=== PATIENT | female | born 2000 | race Caucasian/White ===

== ENCOUNTER 2019-11-16 10:17 | Emergency (ER) | payer OTHER, SELFPAY ==
[2019-11-16 10:46] VITALS: BP 123/70; PULSE 82; RESP 16; TEMP 36.7; O2SAT 100
--- NOTE | 2019-11-16 11:06 | ED.GENADULT ---
HPI - General Adult General Chief complaint: Eye Problems Stated complaint: Eye Problems Time Seen by Provider: 11/16/19 11:06 Source: patient Mode of arrival: ambulatory Limitations: no limitations History of Present Illness HPI narrative: 19-year-old female patient presents to the [facility] with complaints of left eye pain that started yesterday. Patient states that she slept in her contacts the other night. Patient states that she did take out her contact yesterday but continues to have worsening pain. Patient states that her eye is very teary and draining. Patient states that she has a lot of photophobia of the eye. Patient states that she has a lot of pain to the back of the eye and states it almost feels like it is bruised. Denies any trauma that she is aware of. Patient states that she did try calling her head of loss prevention this morning but they state that they were unable to get her in this morning. Related Data Home Medications Medication Instructions Recorded Confirmed buspirone 10 mg PO BID 11/16/19 11/16/19 Allergies Allergy/AdvReac Type Severity Reaction Status Date / Time No Known Allergies Allergy Unverified 11/16/19 10:55 Review of Systems Review of Systems: Narrative: CONSTITUTIONAL: Denies fever, chills, or sweats. EYES: Positive visual changes, positive left eye redness, and clear discharge. ENT: Denies rhinorrhea, congestion, sore throat, or otalgia. CARDIOVASCULAR: Denies chest pain, palpitations, or edema. RESPIRATORY: Denies cough or dyspnea. GASTROINTESTINAL: Denies abdominal pain, nausea, vomiting, or diarrhea. GENITOURINARY: Denies dysuria or hematuria. SKIN: Denies rash or itching. MUSCULOSKELETAL: Denies back pain, joint pain, or myalgia. NEUROLOGIC: Denies headache, numbness, or weakness. PSYCHIATRIC: Denies anxiety or depression. PMFSH Comments At the time of my signature I agree with nursing past medical history, surgical, social, and family history. There is no relevant family history pertinent to the presenting complaint. Exam Narrative: Exam Narrative: GENERAL: Well-appearing, well-nourished, and in no acute distress. HEAD: Normocephalic, atraumatic. EYES: PERRLA, EOM intact with complaint of pain, no periorbital soft tissue swelling ,no erythema, warmth or tenderness noted, no obvious deformity. No crusting or swelling.clear tearing and draining noted to the left eye.positive photophobia. No nystagmus No FB or lesion on lid eversion. Corneas grossly clear, no obvious FB or hyphens/hypopyon. injection to sclera of left eye. Lids and lashes clear. ENT: Nares clear, no rhinorrhea or epistaxis. Mucous membranes moist. NECK: Supple. No lymphadenopathy CHEST: Clear to auscultation. No respiratory distress. HEART: Regular rate and rhythm. No murmur heard. Normal peripheral pulses. ABDOMEN: Soft, nontender, nondistended, normal active bowel sounds. EXTREMITIES: Normal range of motion. No edema. SKIN: Warm, dry, no rash. NEURO: No focal deficits. Alert and oriented x3. Course Reevaluation(s) Reevaluation #1: Attempted to call [facility] [place] where she is where patient does see her head of loss prevention. Spoke with the [facility] there and states that the patient called earlier in based on her complaints the head of loss prevention is not able to do a slit lamp evaluation and is actually recommending that she see an licensed pharmacist and have a slit lamp exam done due to her complaints and recommending that she goes to [facility] for this. Discussed this option with the patient and discussed with her that if she does have some type of damage done to the muscle behind her eye that this would require her to see a specialist and the only one that is available on a Monday would be a [facility] where she would also be able to get a slit lamp exam. Patient is aware of the plan of care and is agreement with this plan states that she will have her grandmother drive her to [facility]
[2019-11-16] MEDS: TETRACAINE HCL 0.5% OPHTH SOLN 4 ML BTL 2 DROP LEFT EYE (11:15)
== END 2019-11-16 11:48 | disposition short-term general hospital (02) ==
PROVIDERS: Emergency Provider Nurse Practitioner Family; PCP Family Medicine Adolescent Medicine
DX: H57.12 Ocular pain, left eye (principal); F41.9 Anxiety disorder, unspecified
CPT/HCPCS: 99213; A9270; G0463

== ENCOUNTER 2025-02-04 19:17 | Emergency (ER) | payer OTHER, SELFPAY ==
--- NOTE | ~2025-02-04 | CT_ITS ---
History: Ground-level fall. PROCEDURE: CT cervical spine and facial bones without intravenous contrast. COMPARISON: None TECHNIQUE: Multiple contiguous axial images of the cervical spine and facial bones were performed without the ad ministration of intravenous contrast. DLP: 227 mGy-cm FINDINGS: Straightening and slight reversal of the normal curvature of the cervical spine is identified, likely muscular in origin. No acute fractures are present within the cervical spine or facial bones.. 8 mm solid nodule within the right upper lobe (axial series, image 165) The remainder of the bilateral lung apices are otherwise unremarkable. No soft tissue abnormality is present. The airway is patent. Impression: Straightening and slight reversal of the normal curvature of the cervical spine, likely muscular in o rigin. No acute fracture within the cervical spine or facial bones. 8 mm solid nodule within the right upper lobe. Fleischner's guidelines are not recommended until the patient is greater than 35 years of age. Consul tation with a second officer is recommended for further evaluation.. Reviewed, dictated and finalized at location A. Impression: Straightening and slight reversal of the normal curvature of the cervical spine , likely muscular in origin. No acute fracture within the cervical spine or facial bones. 8 mm solid nodule within the right upper lobe. Fleischner's guidelines are not recommended until the patient is greater than 3 5 years of age. Consultation with a second officer is recommended for further ev aluation..
--- NOTE | ~2025-02-04 | XR_ITS ---
HISTORY: fall COMPARISON: None TECHNIQUE: 3 views of the right foot were performed FINDINGS: No acute fracture or dislocation is appreciated. No significant degenerative disease is noted. The base of the fifth metatarsal is intact. No calcaneal spur is noted. No significant soft tissue swelling is present. IMPRESSION: Unremarkable radiographic evaluation of the right foot, as detailed above. Reviewed, dictated and finalized at location A. IMPRESSION: Unremarkable radiographic evaluation of the right foot, as detaile d above.
--- NOTE | ~2025-02-04 | CT_ITS ---
History: Fall PROCEDURE: CT head without contrast. COMPARISON: None TECHNIQUE: Axial imaging of the head performed from the skull base to the vertex without IV contrast. Sagittal a nd coronal reformations obtained. DLP: 681 mGy-cm FINDINGS: The ventricles are normal in size, shape and position. There is no mass, mass effect or midline shift. There is no abnormal extra-axial fluid collection or intracranial hemorrhage. Visualized paranasal sinuses are clear. The mastoid air cells are well aerated. No acute displaced fractures within the overlying cranium. Impression: No acute intracranial hemorrhage or suspicious mass effect. Reviewed, dictated and finalized at location A. Impression: No acute intracranial hemorrhage or suspicious mass effect.
--- OUTSIDE RECORDS SUMMARY | 2025-02-04 19:20 | XMS_ITS | Patient Health Record ---
Author Organization [facility] Address [address] [place] [address] Care Team Providers Care Fixture Maker Name Role Phone Chuycasetito Jodi Primary Care Provider Reason For Referral No Information Medications Medication SIG (Take, Route, Fr equency, Duration) Notes Start Date End Date Status LaMICtal 25 MG 2 tablets Orally onc e daily for 14 days Active Zofran 4 MG 1 tablet Orally as needed Active ibuprofen 200mg 2-4 tablets orally as needed Active cloNIDine HCl 0.1 MG 1 tablet Orally twi ce a day as needed for anxiety/agitation for 30 day(s) 02/14/2018 Active busPIRone HCl 10 MG 1 tablet Orally Twic e a day for 14 days Active traZODone HCl 50 MG 1 tablet at bedtime as needed Orally Once a day for 14 days Ac tive Social History Tobacco Use: Social History Observation Description Date Details (start date - stop date) Current Smoker NA - NA Dont use, Tobacco Use/Smoking Question Answer Notes Are you a current smoker How often do you smoke cigarettes? every day How many cigarettes a day do you smoke? 11-20 How soon after you wake up d o you smoke your first cigarette? within 5 minutes Are you interested in quitting? Not ready to josephine t Additional Findings: Tobacco User Modera te cigarette smoker (10-19 cigs/day) Alcohol Screen (Audit-C) Question Answer Notes Did you have a drink contain ing alcohol in the past year? Yes How often did you have a dri nk containing alcohol in the past year? 4 or more times a week (4 points) How many drinks did you have on a typical day when you were drinking in the past year? 3 or 4 drinks (1 point) How often did you have 6 or more drinks on one occasion in the past year? Never (0 point) Points 5 Interpretation Positive Section Notes: Client went to rehab for 10 days, for K2, when she was 14 years old. She used it for 2 months. Legal History-pending felony for a crack pipe, report she took the charge for her boyfriend. She is not on probation. Client went to rehab for 10 days, for K2, when she was 14 years old. She used it for 2 months. Legal History-pending felony for a crack pipe, report she took the charge for her boyfriend. She is not on probation. Problems Problem Type SNOMED Code ICD Code Onset Dates Problem Status W/U Status Risk Notes Problem 43552507 Tobacco dependence (F17.200) Active confirmed Problem Mood disorder (33084115) Mood disorder (F39) Active confirmed Problem CHITO (generalized anxiety disorder) (F41.1) Active confirmed Plan Of Treatment No Information Insurance Providers Payer Name Payer Address Payer Phone Subscriber Number Group Number Insured Name Patient Relationship to Insured Coverage Start Date Coverage End Date [facility] Attn Claims Department [address] [place] [phone] [id number] Linette Nino Self - patient is the insured 8 Medical (General) History Medical History History ICD Code 2016 Broken back depression Hospitalization History Reason Date(Month/Year) depression 01/2018 fracture t spine after fall 2015
--- OUTSIDE RECORDS SUMMARY | 2025-02-04 19:20 | XMS_ITS | Clinical Summary ---
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 Gender Identity Not on file Sexual Orientation Not on file Plan of Treatment Health Maintenance Due Date Last Done Comments Hepatitis C Virus (HCV) Screening 1998 TdaP Immunization 1998 Human Papillomavirus (HPV) Immunization (1 - 3-dose series) 2013 Hepatitis B Immunization (1 of 3 - 19+ 3-dose series) 2017 Pap Smear 2019 Influenza Immunization (#1) 2024 SARS-COV-2 Immunization ( season) 2024 Respiratory Syncytial Virus (RSV) Immunization (Adult) (1 - 1-dose 75+ series) 2073 Meningococcal Immunization (ACWY) Aged Out No longer eligible based on patient's age to complete this topic Pneumococcal Immunization Combined Aged Out No longer eligible based on patient's age to complete this topic Rotavirus Immunization Aged Out No lo nger eligible based on patient's age to complete this topic
--- OUTSIDE RECORDS SUMMARY | 2025-02-04 19:20 | XMS_ITS | Clinical Summary ---
Author Organization [facility] Address [address] [place] [id number] Care Team Providers Care Child Nutrition Manager Name Role Phone Juan Daniel Roberts MD Primary Care Provider [phone] Allergies No known active allergies Medications propranolol 20 MG tablet Take 1 tablet (20 mg total) by mouth 3 (three) times daily as needed (Anxiety and/or palpitation s). 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 Gender Identity Not on file Sexual Orientation Not on file Last Filed Vital Signs Vital Sign Reading Time Taken Comments Blood Pressure 132/95 05/02/2024 6:54 PM CDT Pulse 70 05/02/2024 6:54 PM CDT Temperature 36.8 C (98.2 F) 05/02/2024 4:18 PM CDT Respiratory Rate 18 05/02/2024 6:54 PM CDT Oxygen Saturation 100% 05/02/2024 6:54 PM CDT Inhaled Oxygen Concentration - - Weight 56.7 kg (125 lb) 05/02/2024 4:18 PM CDT Height 162.6 cm (5' 4 ) 05/02/2024 4:18 PM CDT Body Mass Index 21.46 05/02/2024 4:18 PM CDT Plan of Treatment Health Maintenance Due Date Last Done Comments Annual Physical 2001 HPV Vaccines (1 - 3-dose series) 2013 Hepatitis C 2016 DTaP, Tdap and Td Vaccines ( 1 - Tdap) 2017 Hepatitis B Vaccines (1 of 3 - 19+ 3-dose series) 2017 Pneumococcal Vaccine: Pediat rics (0 to 5 Years) and At-Risk Patients (6 to 49 Years) (1 of 2 - PCV) 2017 COVID-19 Vaccine ( - 2023-2 5 season) 2024 Cervical Cancer Screening Pa p Smear (Age 21 to 29) Every 3 Years 08/15/2025 08/15/2022 Cervical Cancer Screening 08/15/2025 Meningococcal B Vaccine Aged Out No l onger eligible based on patient's age to complete this topic Meningococcal Vaccine Aged Out No david nandini eligible based on patient's age to complete this topic RSV Immunizations Under 20 Months Aged Out No longer eligible based on patient's age to complete this topic [place] [address] MEDICAID [facility] Care Teams Child Nutrition Manager Relationship Specialty Start Date End Date Juan Daniel Roberts MD [address] [id number] PCP - General FAMILY PRACTICE 11/27/21
--- OUTSIDE RECORDS SUMMARY | 2025-02-04 19:20 | XMS_ITS | Data Portability ---
Author Organization [facility] [place] Address [address] [place] [address] [place] [address] Assessment No assessment recorded. Plan of Treatment Reminders Order Date Submit Date Provider Last Modified By Organization Details Last Modified Time Details Appointments None recorded. Lab test, urine 2019 020 [email or web address] [place], [address], [place], [address], 0 13:59:56 Referral None recorded. Procedures None recorded. Surgeries None recorded. Imaging US, pelvis, complete 2019 020 [facility], [address], [address], [place], [address], 1 05:01:22 Medication Orders Valtrex 1 gram tablet 2021 022 [id number], [address] [facility], [place], [place], [id number], 2 15:10:03 Patient TargetsNo targets recorded. Patient Instructions Encounter Date Encounter Id Patient Instructions Last Modified By Organization Details Last Modified Time 06/03/2020 [id number] [email or web address] Not available 12:42:55 Reason for Referral None Reported. Results Created Date Observation Date Name Description Value Unit Range Abnormal Flag Note LastModifiedBy Organization Detail LastModifiedTime 03/13/20 20 03/15/2020 CT + NG DNA, PCR, unspe cifie d speci men trichomonas vaginalis, aptima (panther) NOT DETECT ED normal DNA testi ng perfo rmed by [employer]i ficat ion (TMA) These resul ts shoul d be inter prete d in light of all clini messi and labor atory findi ngs. This assay is highl y accur ate, but rare false posit natalie and negat natalie resul ts may occur . Posit natalie resul ts in low preva lence popul ation s may requi re re-ev aluat ion. A negat natalie resul t does not precl ude a possi ble infec tion due to a speci men inade quacy or sampl ing error . Test perfo rmed by [employer], d/b/a Path jean, [address], [place] [address] , Parviz Pizarro ra, , Labor atory Dire tor. Not Available [facility] ([facility]) [address], [place], [address], 03/16/2020 07:20:40 03/13/20 20 03/15/2020 CT + NG DNA, PCR, unspe cifie d speci men neisseria gonorrhoeae, aptima NOT DETECT ED normal DNA testi ng perfo rmed by [employer] f[employer] ion (TMA) These resul ts shoul d be inter prete d in light of all clini messi and labor atory findi ngs. This assay is highl y accur ate, but rare false posit natalie and negat natalie resul ts may occur . Posit natalie resul ts in low preva lence popul ation s may requi re re-ev aluat ion. A negat natalie resul t does not precl ude a possi ble infec tion due to a speci men inade quacy or sampl ing error . Test perfo rmed by [employer] [facility] [employer], [employer], d/b/a Nina rouchad, [address], [place] [address] , Parviz Pizarro ra, DO, Labor atory Direc tor. Not Available [facility]) [address], [place], [address], 03/16/2020 07:20:40 03/13/20 20 03/15/2020 CT + NG DNA, PCR, unspe cifie d speci men chlamydia trachomatis, aptima NOT DETECT ED normal DNA testi ng perfo rmed by [employer] fic[employer] ion (TMA) These resul ts shoul d be inter prete d in light of all clini messi and labor atory findi ngs. This assay is highl y accur ate, but rare false posit natalie and negat natalie resul ts may occur . Posit natalie resul ts in low preva lence popul ation s may requi re re-ev aluat ion. A negat natalie resul t does not precl ude a possi ble infec tion due to a speci men inade quacy or sampl ing error . Test perfo rmed by [facility], d/b/a Nina rosenberg, [address], [place] [address] , Parviz Pizarro ra, DO, Labor atory Direc tor. Not Available [facility] ([facility]) [address], [place], [address], 03/16/2020 07:20:40 03/13/20 20 03/13/2020 pregn raven test, urine HCG negati ve Not Available [place] [address], [place], [address], 03/13/2020 15:26:06 06/03/20 20 06/03/2020 pregn raven test, urine HCG negati ve Not Available [place] [address], [place], [address], 06/03/2020 12:23:53 06/03/20 20 06/03/2020 pregn raven test, urine HCG negati ve Not Available [place] [address], [place], [address], 06/03/2020 12:22:54 08/15/20 22 08/15/2022 CT/GC AND TRICH OMONA S VAGIN MAGDY (RRNA ), SWAB chlamydia trachomatis, PCR Negati ve negati ve Not Available [facility] (Lab) [address], [place], [address], 08/19/2022 22:08:03 08/15/20 22 08/15/2022 CT/GC AND TRICH OMONA S VAGIN MAGDY (RRNA ), SWAB neisseria gonorrhoeae, PCR Negati ve negati ve Not Available [facility] (Lab) [address], [place], [address], 08/19/2022 22:08:03 08/15/20 22 08/15/2022 CT/GC AND TRICH OMONA S VAGIN MAGDY (RRNA ), SWAB trichomonas vaginalis ribosomal RNA (rrna) Negati ve negati ve Not Available [facility] (Lab) [address], [place], [address], 08/19/2022 22:08:03 08/15/20 22 08/15/2022 VAGIN ITIS/ VAGIN OSIS, DNA PROBE fidel sp. detection, direct probe Negati ve negati ve Not Available [facility] (Lab) [address], [place], [address], 08/19/2022 22:08:04 08/15/20 22 08/15/2022 VAGIN ITIS/ VAGIN OSIS, DNA PROBE gardnerella vag. detection, direct probe Positi ve negati ve abnormal Not Available [facility] (Lab) [address], [place], [address], 08/19/2022 22:08:04 08/15/20 22 08/15/2022 VAGIN ITIS/ VAGIN OSIS, DNA PROBE trichomonas vag. detection, direct probe Negati ve negati ve Not Available [facility] (Lab) [address], [place], [address], 08/19/2022 22:08:04 08/15/20 22 08/15/2022 CULTU RE: HERPE S SIMPL EX VIRUS (HSV) , REFLE X TYPIN G source SWAB Not Available [facility] (Lab) [address], [place], [address], 08/19/2022 22:08:05 08/15/20 22 08/15/2022 CULTU RE: HERPE S SIMPL EX VIRUS (HSV) , REFLE X TYPIN G hsv culture, body fluid NOT ISOLAT ED REFER ENCE RANGE : NOT ISOLA CHICO perin eum Perfo rming Organ izati on Infor matio n: Site ID: EZ Name: [facility]Anant hols [facility]-S an Gerhardihsan Diaz tr[place] , Addre ss: [id number] [facility] [place] [phone] Dire tor: Lidia dodd MD,Ph D,MAVIS Not Available [facility] (Lab) [address], [place], [address], 08/19/2022 22:08:05 Result Notes None recorded. 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) w/o abn findings;R ecorded Elsewhere: No Locatio n: [facility] Amy rce: EHR Chroni c: N Practice ID: 0001 Billa ble Time: 11:00:00 AM Not Available [facility] 0 16:02:33 test negative [id number] Active 2018 Encounter for test, result negative;R ecorded Elsewhere: No Locatio n: [facility] rce: EHR Chroni c: N Practice ID: 0001 Billa ble Time: 09:30:00 AM Not Available [facility] 0 16:02:[address] Concept Active 2019 Encounter for general adult medical exam with abnormal finding;Re corded Elsewhere: No Locatio n: [facility] rce: EHR Chroni c: N Practice ID: 0001 Billa ble Time: 11:15:00 AM Not Available [facility] 0 16:02:33 Syphilis test finding 949249257 Active 2018 Encounter for STD screening; Recorded Elsewhere: No Locatio n: [facility] rce: EHR Chroni c: N Practice ID: 0001 Billa ble Time: 09:30:00 AM Not Available [facility] 0 16:02:33 Problem Notes None recorded. Medical Equipment None Reported. Medications Name Sig Start Date Stop Date Status Note LastModified by Organization Details LastModified Time tretinoin 0.1 % topical cream active Not Available Not Available Not Available metronida zole 500 mg tablet Take 1 tablet every 12 hours by oral route for 7 days. active Not Available Not Available No t Available clindamyc in 1 %-benzoyl peroxide 5 % topical gel active Not Available Not Available Not Available Metrogel Vaginal 0.75 % (37.5 mg/5 gram) insert 1 applicat orful by vaginal route every day at bedtime 11/06 completed Prescrib ed Elsewher e: No Locat ion: [facility] M odify By: zhao trevizo DateTime : 07/17/20 03:25:12 PM Not Available Not Available Not Available buspirone 10 mg tablet 06/03 completed Not Available Not Available Not Available Valtrex 1 gram tablet Take 1 tablet every 12 hours by oral route for 7 days. 2021 active Not Available Not Available Not Avai lable hydroxyzi ne HCl 25 mg tablet 06/03 completed Not Available Not Available Not Available methylpre dnisolone 4 mg tablets in a dose pack 06/03 completed Not Available Not Available Not Available spironola ctone 50 mg tablet active Not Available Not Available No t Available Ventolin HFA 90 mcg/actua tion aerosol inhaler 06/03 completed Not Available Not Available Not Available Vitals Date Recorded Body height Body mass index (BMI) Body weight Systolic blood pressure Diastolic blood pressure Provider Name and Address Organization Details Last Updated DateTime 03/13/2020 162.56 cm 24.4 kg/m2 07508.12 g 124 mm[Hg] 77 mm[Hg] Zuri Guerrero [facility] 0 15:25:33 Date Recorded Body height Body mass index (BMI) Body weight Systolic blood pressure Diastolic blood pressure Provider Name and Address Organization Details Last Updated DateTime 08/15/2022 162.56 cm 21.4 kg/m2 90694.61 g 132 mm[Hg] 78 mm[Hg] Nichole Sorto [facility] 2 14:34:06 Date Recorded Body height Body mass index (BMI) Body weight Systolic blood pressure Diastolic blood pressure Provider Name and Address Organization Details Last Updated DateTime 06/03/2020 162.56 cm 24.2 kg/m2 77027.52 g 136 mm[Hg] 88 mm[Hg] Glenna Jenkins [facility] 0 12:17:06 Social History Question Answer Notes LastModified by Organizat ion Details LastModified Time Tobacco Smoking Status Former Smoker Zuri Guerrero [facility] 03/13/2020 15:33:46 What Is Your Level Of Alcohol Consumption? Occasional Information not available 03/13/2020 Are You Blind Or Do You Have Difficulty Seeing? No Information not available 08/15/2022 Are You Deaf Or Do You Have Serious Difficulty Hearing? No Information not available 08/15/2022 What Type Of Diet Are You Following? REGULAR Information not available 08/15/2022 Sex: Unknown Functional Status Question Answer Note LastModified by Organizat ion Details LastModified Time Do you have difficulty walking or climbing stairs? No Information not available 08/15/2022 Are you able to walk? YESWOREST Information not available 08/15/2022 Are you able to care for yourself? Yes Information not available 08/15/2022 Do you have difficulty dressing or bathing? No Information not available 08/15/2022 What is your exercise level? Occasional Information not available 03/13/2020 Mental Status None recorded. Family History Relationship Description Onset Age of this Age Resolved Age Notes LastModified by Organization Details LastModified Time Mother Anemia [email or web address] Not available 12:17:43 Notes:Mother: Anemia Medical History Condition Response Allergies (Food, seasonal, environmental ) N Other N Breast Cancer N Drug/Latex Allergies/Reactions N Blood Transfusion N Dermatologic Disorders N Lung Disease N Defects or Inherited Disease N Breast Problem N Gestational Diabetes N Hematologic disorders N Anesthesia Complications N History of STI N Deep Vein Thrombosis N Polycystic ovary syndrome N Anxiety Disorder N Autoimmune disease N Arthritis N Infertility N Polyps N Acid Reflux (GERD) N History of abnormal pap N Cancer N Stroke N Varicosities N Neurologic/Epilepsy N Endometriosis N High Cholesterol N Headaches N Fibromyalgia N Kidney Disease N Heart Problems N Kidney or Bladder Problems N Thyroid Problems N GI Problems N Eating Disorder N Anemia N Art (IVF or FET) N Psychiatric Illness N Ovarian Cancer N Diabetes N Pulmonary (TB, Asthma) N Hepatitis/Liver Disease N No Past Medical History N Eczema N Urinary Tract Infection N Abuse/Domestic Violence N Asthma N Trauma/Violence N Depression/ depression N Heart Disease N Pre-Eclampsia N Hypertension N Osteoporosis N Thrombophilias N Gynecological History Statement/Question Response HPV Vaccine Y Sexual Problems? N Current Control Method None Date of LMP 05/19/2020 Sexually Active? Y Obstetrics History GPAL:G 0 P 0 0 0 0 Past Encounters Encounter ID Performer Location Encounter Start Date Encounter Closed Date Diagnosis/Indication Diagnosis SNOMED-CT Code Diagnosis ICD10 Code Diagnosis Note [id number] Dia Medrano [facility] [address] [address] 03/13/2020 15:15:37 03/13/2020 16:15:37 Abnormal uterine bleeding [id number] 9100 N93.9 Patient is a 19yo white female here today with concerns of having two menses the month of January. Also felt more PMS during that time with some cramping. She has also been very stressed out due to a recent change in her [facility]. Broke up with boyfriend of 4yrs. Did meet someone new, got a new job, bought her first car & finding new place to live. SHe feels it's very positive changes but still trying to mend her heart over ex-boyfrie nd of 4yrs. Her period is due in another week to her knowledge. No Hx of irregular menses. Neg vag d/c, itching, odor. Neg UPT Neg urinary sx's Neg pain today. No prominent sx's today but wanted to endure no issues so came to be seen in office. Her exam is wnl today. We discussed stress management & will keep menstrual diary. If this becomes a regular occurence will return for TVUS with OV. Likely this blip in menstrual cycle caused by physical/e motional stress. Will send STD screening since has new partner. Time spent in visit is a total of 15 mins with at least 50% of visit consisting of counseling and review of plan of care. [id number] [facility] [address] [place] [address] 06/03/2020 12:09:34 06/03/2020 13:47:38 Irregular periods 06689474 N92.6 We agreed to pursue TVUS for irregular menses & tender uterus on exam. If US is wnl, she would like to consider control for period regulation . Time spent in visit is a total of 15 mins with at least 50% of visit consisting of counseling and review of plan of care. [id number] JESU White [place] [address] [place] [address] 08/15/2022 14:10:42 08/15/2022 15:44:32 Genital herpes simplex 33276942 A60.9 Suspect primary genital HSV outbreakHS V PCR sentSTI endocervic al testing sentVagini tis panel sentBlood STI testing declined Discussed HSV in-depth. Handout given. Rx sentNo IC with symptoms/a ctive outbreaks, condom use encouraged with ICR/B of medication discussedW ill await cx and treat any additional findingsRT C if symptoms persist - she can call office with future outbreaks and rx can be sent in Time spent in visit is a total of 30 mins with at least 50% of visit consisting of counseling and review of plan of care. Venereal d isease screening [id number] Z11.3 Health Concerns Section Related Observation LastModified by Organization Detai ls LastModified Time None Recorded Concern Status LastModified by Organization Details LastModified Time None Recorded Advance Directives Directive None Recorded Payers Encounter Date Sequence Insurance Name Policy Number Policy Patterson Covered Member ID Patterson Member ID Guarantor Name 03/13/[address] [id number] Linette Knight 06/03/2020 1 [facility] [id number] [place] [address] [id number] Linette Knight 08/15/[address] [id number] Linette Knight Notes Date Note Type Note Provider Name and Address Organization Details Recorded Time 03/13/2020 text/html Beer - Abnormal BleedingReported bypatient.Notes:Aries urbina is a 19yo white female here today with concerns of having two menses the month of January. Also felt more PMS during that time with some cramping. She has also been very stressed out due to a recent change in her relationship status. Broke up with boyfriend of 4yrs. Did meet someone new, got a new job, bought her first car & finding new place to live. SHe feels it's very positive changes but still trying to mend her heart over ex-boyfriend of 4yrs. Her period is due in another week to her knowledge. No Hx of irregular menses. Neg vag d/c, itching, odor. Neg UPT Neg urinary sx's Neg pain today. No prominent sx's today but wanted to endure no issues so came to be seen in office. Dia Medrano, SG- [address], [place], [address], [place] - [facility] 03/13/2020 15:57:14 06/03/2020 text/html Here for continu ed irregular cycles. Previously discussed returning if cycles continued to be unpredictable & irregular for TVUS. No new sexual partners. Feels flow of periods have changed considerably. No pain. Neg urinary sx's Neg vag d/c, itching, odor. Neg GI issues. JESU Layton- [address], [place], [address], [facility] 06/15/2020 13:58:51 08/15/2022 text/html 21yo Presents fo r evaluation of vulvar lesionsNoticed about 4-5 days ago. Started as blister like lesions on the perineum that have now crusted over. Very painful at first, burned when urine touched them. Now only slightly tender.SA with steady male partner x 3 years, partner with vasectomyDenies any vaginal itching. Slight vaginal discharge with an odor.States she has never been diagnosed with HSV previouslyLast pap smear at age 19, normal per patientDenies any other medical hx JESU White [address], [place], [address], [facility] 08/15/2022 15:13:49 OBGyn Episode No OBEpisode recorded.
[2025-02-04 19:21] VITALS: BP 150/91; PULSE 111; RESP 15; TEMP 36.5; O2SAT 99
--- OUTSIDE RECORDS SUMMARY | 2025-02-04 20:03 | XMS_ITS | Clinical Summary ---
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
--- OUTSIDE RECORDS SUMMARY | 2025-02-04 20:03 | XMS_ITS | Clinical Summary ---
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
[2025-02-04] MEDS: ACETAMINOPHEN 325 MG TABLET 650 MG PO (20:12)
[2025-02-04] MEDS: TETANUS,DIPHTHERIA,AC PERTUSSIS ADULT (0.5 ML) BOOSTRIX IM (20:12)
[2025-02-04 20:27] LABS: Basophils Percent Auto 0.5 % (0.2-1.2); Eosinophils Percent Auto 0.4 % (0-4.4); Hematocrit 43.4 % (37.0-47.0); Hemoglobin 14.5 g/dL (12.0-15.0); Immature Granulocyte Absolute 0.02 K/mm3 (0.00-0.031); Immature Granulocyte Percent A 0.3 % (0-0.5); Lymphocytes Absolute Auto 1.68 K/mm3 (0.9-3.2); Mean Corpuscular HGB Conc 33.4 g/dl (32-36); Mean Corpuscular Hemoglobin 31.4 pg (26-34); Mean Corpuscular Volume 93.9 fl (80-100); Mean Platelet Volume 9.3 fl (7.4-10.4); Monocytes Absolute Auto 0.4 K/mm3 (0.1-0.6); Monocytes Percent Auto 4.9 % (2.6-8.5); Neutrophils Absolute Auto 5.2 K/mm3 (1.3-6.7); Neutrophils Percent Auto 70.9 % (45.5-73.1); Platelet Count Result 348 k/mm3 (150-375); Red Blood Count 4.62 M/mm3 (4.2-5.4); Red Cell Distribution Width 12.3 % (11.5-14.5); White Blood Count 7.3 K/mm3 (4.5-10.0)
[2025-02-04 20:38] LABS: SPREG INTERNAL CONTROL Positive; Serum Qual hCG Negative
[2025-02-04 20:39] LABS: Anion Gap 16 mmol/L (4-12); Blood Urea Nitrogen 16 mg/dL (7-17); Carbon Dioxide 19 mmol/L (22-30); Chloride 108 mmol/L (98-107); Estimated CRCL calculation 77 ml/min; Estimated Glomerular Filt Rate > 60; Ethanol 176 mg/dL (<10); Glucose 81 mg/dL (65-110); Potassium 3.9 mmol/L (3.4-5.0); Sodium 143 mmol/L (137-145)
[2025-02-04] MEDS: LIDOCAINE, EPINEPHRINE, TETRACAINE VISCOUS SOLN 3 ML TOPICAL (20:54)
[2025-02-04 21:14] VITALS: BP 129/85; PULSE 90; RESP 16; O2SAT 100
[2025-02-04] MEDS: SODIUM CHLORIDE 0.9% IV 1,000 ML 999 ML IV CONT (22:38)
[2025-02-04] MEDS: CEPHALEXIN 500 MG CAPSULE PO (22:51)
[2025-02-04 23:05] VITALS: BP 127/73; PULSE 76; RESP 16; O2SAT 100
== END 2025-02-04 23:05 | disposition home or self-care (01) ==
PROVIDERS: Emergency Provider Physician Assistant; PCP Family Medicine Adolescent Medicine
DX: S01.81XA Laceration without foreign body of other part of head, initial encounter (principal); R91.1 Solitary pulmonary nodule; F10.129 Alcohol abuse with intoxication, unspecified; Y90.6 Blood alcohol level of 120-199 mg/100 ml; W18.30XA Fall on same level, unspecified, initial encounter; Z23 Encounter for immunization
CPT/HCPCS: 12011; 36415; 70450; 70486; 72125; 73630; 80048; 82077; 84703; 85025; 90471; 90715; 96360; 99284; A9270; J7030

== ENCOUNTER 2025-04-07 00:41 | Emergency (ER) | payer OTHER, SELFPAY ==
[2025-04-07] VITALS (11 sets, daily range): BP systolic 122–155; BP diastolic 84–115; PULSE 85–118; RESP 15–21; TEMP 36.4; O2SAT 99–100
--- NOTE | ~2025-04-07 | XR_ITS ---
Portable chest x-ray Comparison: None Clinical History: Palpitations Findings: Lungs are clear, without focal consolidation or pleural effusion. Cardiomediastinal silho uette is unremarkable. Bones and soft tissues are unremarkable. Impression: Normal chest. Reviewed, dictated and finalized at location M. Impression: Normal chest.
--- NOTE | 2025-04-07 00:44 | ECG_ITS ---
Test Date: 2025-04-07 00:52:02 Measurements Intervals [place] Rate: 116 P: 75 FL: 143 QRS: 82 QRSD: 81 T: 4 QT: 281 QTc: 391 Interpretive Statements SINUS TACHYCARDIA POSSIBLE RIGHT ATRIAL ENLARGEMENT [0.25mV P-WAVE] NONSPECIFIC ST & T-WAVE ABNORMALITY ABNORMAL RHYTHM ECG No previous ECG available for comparison Electronically Signed On 04-07-2025 22:28:17 CDT by Nick Alatorre M.D.
--- NOTE | 2025-04-07 00:48 | ED.GENADULT ---
HPI - General Adult General Chief complaint: Unspecified Stated complaint: adderall overuse/cocaine use Time Seen by Provider: 04/07/25 00:44 History of Present Illness HPI narrative: Patient did use cocaine yesterday, and she is on Adderall and has been self-titrating up on the dosage (started a week ago), earlier tonight she started feeling palpitations, shortness of breath, felt like she was going to , felt dizzy and had tingling to her bilateral hands and feet. Her mother has had panic attacks in the past and offered her hydroxyzine, but the patient did not want to try mixing any more medications. Related Data Home Medications ?Medication ?Instructions ?Recorded ?Confirmed ?Last Taken ?Type clindamycin 1 %-benzoyl peroxide 5 1 applic topical DAILY 01/22/24 03/11/25 Unknown History % topical gel tretinoin 0.1 % topical cream 1 applic topical QHS 01/22/24 03/11/25 Unknown History Allergies Allergy/AdvReac Type Severity Reaction Status Date / Time No Known Allergies Allergy Verified 03/11/25 11:00 Review of Systems Review of Systems: All systems reviewed & are unremarkable except as noted in HPI and below PMFSH Family History Family History Mother Anemia Grandparent Diabetes mellitus Other Melanoma Social History Social History Years smoked: 6 Smoking status: Former smoker Second hand tobacco smoke exposure: No Smoking end date: 03/02/21 Alcohol intake: current Alcohol use details: Rare - socially Substance use: former Substance use type: marijuana and amphetamines Living arrangements: with family Additional living arrangements comments: Fiance Occupation/Education: occupation Additional occupation/education comments: [employer] Gender identity (if verbalized by the patient): Female Sexual Orientation (if Verbalized by the Patient): Straight or Heterosexual Spiritual care concerns: No Agree to blood products: Yes Exam Narrative: EXAMINATION OF ORGAN SYSTEMS/BODY AREAS: Constitutional: Vital signs per nursing GENERAL: Extremely anxious HEAD: Normal with no signs of head trauma. EYES: EOMI, conjunctiva normal ENT: Hearing grossly intact LUNGS: Tachypneic HEART: Tachycardic ABD: [Soft], [nontender to palpation] EXT: Normal range of motion, no lower extremity edema with tenderness SKIN: [No rashes or lesions.] NEURO: [Alert and oriented x 3. No gross focal sensory or strength deficits.] PSYCH: Anxious affect Course Vital Signs Vital signs: Vital Signs Temperature 97.6 F 04/07/25 00:41 Pulse Rate 113 H 04/07/25 00:41 Respiratory Rate 20 04/07/25 00:41 Blood Pressure 155/115 H 04/07/25 00:41 Pulse Oximetry 100 04/07/25 00:41 Oxygen Delivery Room Air 04/07/25 00:41 Temperature 97.6 F 04/07/25 00:41 Pulse Rate 85 04/07/25 01:54 Respiratory Rate 17 04/07/25 01:54 Blood Pressure 130/98 H 04/07/25 01:54 Pulse Oximetry 99 04/07/25 01:54 Oxygen Delivery Room Air 04/07/25 00:41 Medical Decision Making MDM Narrative Medical decision making narrative: Patient presenting here with symptoms consistent with panic attack. On exam patient is [tachycardic and hyperventilating and is quite anxious]. I will obtain EKG and chest xray to rule out arrhythmia/ischemia, pneumothorax, or other cause of chest discomfort/shortness of breath. I did provide a dose of Ativan. Chest x-ray on my independent interpretation does not show any acute abnormality, no pneumothorax or consolidation. EKG - 12-Lead: Performed at 0052. Interpreted by me. [Sinus rhythm]. Rate 116. [Normal] axis. MN-interval [normal]. QRS duration [normal]. QTc [normal]. [No ST segment elevation or depression]. [T-wave normal]. Impression: No EKG evidence of acute ischemia or dysrhythmia. On reevaluation patient is feeling better, resting comfortably, vital signs now stable. I do feel patient is stable for discharge home at this time with followup to their doctor, and return here if symptoms return or worsen. Counseled to avoid Adderall especially that she should not be increasing the dose on her own, and definitely not mixing with cocaine. Patient expresses understanding and agreement. Agreeable to outpatient management. Vital Signs Vital Signs: Vital Signs Temperature 97.6 F 04/07/25 00:41 Pulse Rate 113 H 04/07/25 00:41 Respiratory Rate 20 04/07/25 00:41 Blood Pressure 155/115 H 04/07/25 00:41 Pulse Oximetry 100 04/07/25 00:41 Oxygen Delivery Room Air 04/07/25 00:41 Temperature 97.6 F 04/07/25 00:41 Pulse Rate 85 04/07/25 01:54 Respiratory Rate 17 04/07/25 01:54 Blood Pressure 130/98 H 04/07/25 01:54 Pulse Oximetry 99 04/07/25 01:54 Oxygen Delivery Room Air 04/07/25 00:41 Lab Data Labs: Lab Results 04/07/25 04/07/25 Range/Units 01:13 01:35 POC Urine HCG, Qual Negative (Negative) Urine Test Negative Urine Opiates Screen Negative (Negative) Urine Methadone Screen Negative (Negative) Ur Barbiturates Screen Negative (Negative) Ur Phencyclidine Scrn Negative (Negative) Ur Amphetamine Screen Positive A (Negative) U Benzodiazepines Scrn Negative (Negative) Urine Cocaine Screen Positive A (Negative) U Cannabinoids Screen Negative (Negative) Discharge Plan Discharge Clinical Impression: Panic attack Patient Disposition: Home Condition: Stable Instructions: Panic Attack (ED) Additional Instructions: Please make sure you are only taking the medication you are prescribed at the dosage you are prescribed; do not use any methamphetamines or cocaine, and also avoid any caffeine for now. Please follow up with your doctor and let him know about the symptoms you were having as you may need medication adjustments. You can always return to the ER for any further issues. Patient Language: Estonian Prescriptions: No Action clindamycin-benzoyl peroxide 1-5 % gel 1 applic topical DAILY tretinoin 0.1 % cream 1 applic topical QHS dextroamphetamine-amphetamine [Adderall] 10 mg tablet 10 mg PO BID Qty: 60 0RF Rx Instructions: administer doses at least 4-6 hours apart escitalopram oxalate 10 mg tablet 10 mg PO DAILY Qty: 30 5RF Follow-up/Referrals: Juan Daniel Roberts MD [Primary Care Provider] -
[2025-04-07] MEDS: LORazepam (*CRX) 1 MG TABLET PO (00:50)
--- OUTSIDE RECORDS SUMMARY | 2025-04-07 01:24 | XMS_ITS | Patient Health Record ---
Author Organization [facility] Address [address] [place] [address] Care Team Providers Care Professor Of Counseling Name Role Phone Chuycasetito Jodi Primary Care Provider Reason For Referral No Information Medications Medication SIG (Take, Route, Fr equency, Duration) Notes Start Date End Date Status LaMICtal 25 MG 2 tablets Orally onc e daily; Duration: 14 days Active Zofran 4 MG 1 tablet Orally as needed Active ibuprofen 200mg 2-4 tablets orally as needed Active cloNIDine HCl 0.1 MG 1 tablet Orally twi ce a day as needed for anxiety/agitation; Duration: 30 day(s) 02/14/2018 Active busPIRone HCl 10 MG 1 tablet Orally Twic e a day; Duration: 14 days Active traZODone HCl 50 MG 1 tablet at bedtime as needed Orally Once a day; Duration: 14 days Active Social History Tobacco Use: Social History Observation [...] Problem Status W/U Status Risk Notes Problem Tobacco dependence (24894160) Tobacco dependence (F17.200) Active confirmed Problem Mood disorder (67268466) Mood disorder (F39) Active confirmed Problem CHITO (generalized anxiety disorder) (F41.1) Active confirmed Plan Of Treatment No Information Insurance Providers Payer Name Payer Address Payer Phone Subscriber Number Group Number Insured Name Patient Relationship to Insured Coverage Start Date Coverage End Date [facility] Attn Claims Department [address] [place] [address] [id number] Linette Nino Self - patient is the insured 8 Medical (General) History Medical History History ICD Code 2016 Broken back depression Hospitalization History Reason Date(Month/Year) depression 01/2018 fracture t spine after fall 2015
--- OUTSIDE RECORDS SUMMARY | 2025-04-07 01:24 | XMS_ITS | Clinical Summary ---
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
--- OUTSIDE RECORDS SUMMARY | 2025-04-07 01:24 | XMS_ITS | Clinical Summary ---
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
[2025-04-07 01:26] LABS: Pregnancy On Board Control Positive
[2025-04-07 01:36] LABS: BEDSIDEPREGUCG Negative (Negative)
[2025-04-07 01:41] LABS: Cannabinoid Screen Urine Negative (Negative)
== END 2025-04-07 01:56 | disposition home or self-care (01) ==
PROVIDERS: Emergency Provider Emergency Medicine; PCP Family Medicine Adolescent Medicine
DX: F41.0 Panic disorder [episodic paroxysmal anxiety] (principal); Z87.891 Personal history of nicotine dependence
CPT/HCPCS: 71045; 80307; 81025; 93005; 99283; A9270